=== PATIENT | female | born 1940 | race Asian ===

== ENCOUNTER → 2016-07-05 | Outpatient (CLI) | payer MEDICARE, OTHER ==
[~2016-07-05] MED LIST: AMLO1CAP; ASPI-556 PO; ATOR10TA84 PO; ATOR20TA86 PO; MECL-111 PO
[2016-07-05 14:37] LABS: ALANINE AMINOTRANSFERASE 36 U/L (12-78); ALBUMIN 3.8 g/dL (3.4-5.0); ANION GAP 9 mmol/L (8-16); ASPARTATE AMINOTRANSFERASE 25 U/L (15-37); BILIRUBIN,TOTAL 0.6 mg/dL (0.1-1.0); CARBON DIOXIDE 29 mmol/L (22-29); CHLORIDE 105 mmol/L (98-107); CHOL/HDL RATIO 2.1 (3.9-5.7); CREATININE 0.78 mg/dL (0.60-1.30); GLOMERULAR FILTR. RATE CALC > 60 mL/min (>60); POTASSIUM 4.2 mmol/L (3.5-5.1); SODIUM SERUM 143 mmol/L (136-145); TOTAL PROTEIN, SERUM 7.5 g/dL (6.4-8.2); UREA NITROGEN, BLOOD 14 mg/dL (7-18)
[2016-07-05 14:51] LABS: HEMOGLOBIN A1C 6.2 % (4.5-6.2)
== END | disposition home or self-care (01) ==
LOC: LABPV 11:51
PROVIDERS: ATTEND Internal Medicine
DX: I10 Essential (primary) hypertension (principal); E78.00 Pure hypercholesterolemia, unspecified; R73.09 Other abnormal glucose
CPT/HCPCS: 83036

== ENCOUNTER → 2017-09-14 | Outpatient (CLI) | payer MEDICARE, OTHER ==
[2017-09-14 15:22] LABS: BASOPHILS % (AUTO) 0.5 % (0.0-2.0); EOSINOPHILS % (AUTO) 0.9 % (1.0-6.0); HEMATOCRIT 36.1 % (36-46); HEMOGLOBIN 11.4 g/dL (12.0-16.0); LYMPHOCYTES # (AUTO) 1.7 K/uL (1.0-4.8); LYMPHOCYTES % (AUTO) 32.4 % (22.0-44.0); MEAN CORPUSCULAR HEMOGLOBIN 22.8 pg (26.0-34.0); MEAN CORPUSCULAR HGB CONC 31.7 G/dL (31.0-37.0); MEAN CORPUSCULAR VOLUME 72 fL (80-100); MONOCYTES # (AUTO) 0.4 K/uL (0.1-1.0); MONOCYTES % (AUTO) 7.4 % (2.0-9.0); NEUTROPHILS # (AUTO) 3.1 K/uL (1.8-7.7); NEUTROPHILS % (AUTO) 58.8 % (40.0-70.0); PLATELET COUNT (AUTO) 247 K/uL (150-450); RED BLOOD CELL COUNT(AUTO) 5.01 MIL/uL (4.00-5.20); RED CELL DISTRIBUTION WIDTH 14.3 % (11.5-14.5)
[2017-09-14 15:38] LABS: ALANINE AMINOTRANSFERASE 29 U/L (12-78); ALBUMIN 4.2 g/dL (3.4-5.0); ALKALINE PHOSPHATASE 83 U/L (46-116); ANION GAP 6 mmol/L (8-16); ASPARTATE AMINOTRANSFERASE 20 U/L (15-37); BILIRUBIN,TOTAL 0.6 mg/dL (0.1-1.0); CALCIUM, TOTAL 8.9 mg/dL (8.8-10.5); CARBON DIOXIDE 28 mmol/L (22-29); CHLORIDE 106 mmol/L (98-107); CHOL/HDL RATIO 3.7 (3.9-5.7); CHOLESTEROL 183 mg/dL (131-200); CREATININE 0.89 mg/dL (0.60-1.30); GLOMERULAR FILTR. RATE CALC > 60 mL/min (>60); GLUCOSE,RANDOM 93 mg/dL (70-110); HDL CHOLESTEROL 49 mg/dL (40-60); LDL CHOL (CALC.) 111 mg/dL (0-130); SODIUM SERUM 140 mmol/L (136-145); TOTAL PROTEIN, SERUM 7.7 g/dL (6.4-8.2); TRIGLYCERIDES 117 mg/dL (15-150); UREA NITROGEN, BLOOD 22 mg/dL (7-18)
== END | disposition home or self-care (01) ==
LOC: MSR 10:41
PROVIDERS: ATTEND Internal Medicine Infectious Disease
DX: M43.16 Spondylolisthesis, lumbar region (principal); M51.36 Other intervertebral disc degeneration, lumbar region; M16.11 Unilateral primary osteoarthritis, right hip; E78.00 Pure hypercholesterolemia, unspecified; Z79.899 Other long term (current) drug therapy
CPT/HCPCS: 72100; 73502; 84550; 86430

== ENCOUNTER 2017-10-01 04:41 | Inpatient (IN) | payer MEDICARE, OTHER ==
[~2017-10-01] VITALS: Ht 152.4 cm; Wt 63.0 kg
[2017-10-01] MEDS ORDERED: NAPR-58 PO (04:53)
[2017-10-01] MEDS ORDERED: ACET-2247 PO (04:53)
[2017-10-01] MEDS ORDERED: CALC-1038 PO (04:53)
[2017-10-01] MEDS ORDERED: ERGO400T7 PO (04:53)
[2017-10-01] MEDS ORDERED: BENA20 PO (04:53)
[2017-10-01] MEDS ORDERED: ERGO500014 PO (04:53)
[2017-10-01] MEDS ORDERED: ACETAMINOPHEN/CODEINE 300-30 MG TABLET PO ONE (05:45)
[2017-10-01] MEDS ORDERED: KETOROLAC TROMETHAMINE 60 MG/2 ML VIAL IM ONE (05:45)
[2017-10-01 06:21] LABS: BASOPHILS % (AUTO) 0.3 % (0.0-2.0); EOSINOPHILS % (AUTO) 1.6 % (1.0-6.0); HEMATOCRIT 34.1 % (36-46); HEMOGLOBIN 10.8 g/dL (12.0-16.0); LYMPHOCYTES # (AUTO) 1.2 K/uL (1.0-4.8); LYMPHOCYTES % (AUTO) 19.2 % (22.0-44.0); MEAN CORPUSCULAR HEMOGLOBIN 22.7 pg (26.0-34.0); MEAN CORPUSCULAR HGB CONC 31.7 G/dL (31.0-37.0); MEAN CORPUSCULAR VOLUME 72 fL (80-100); MONOCYTES # (AUTO) 0.4 K/uL (0.1-1.0); MONOCYTES % (AUTO) 6.6 % (2.0-9.0); NEUTROPHILS # (AUTO) 4.5 K/uL (1.8-7.7); NEUTROPHILS % (AUTO) 72.3 % (40.0-70.0); PLATELET COUNT (AUTO) 230 K/uL (150-450); RED BLOOD CELL COUNT(AUTO) 4.77 MIL/uL (4.00-5.20); RED CELL DISTRIBUTION WIDTH 14.2 % (11.5-14.5)
[2017-10-01 06:23] LABS: CALCIUM, TOTAL 8.9 mg/dL (8.8-10.5); CREATININE 1.09 mg/dL (0.60-1.30); POTASSIUM 4.3 mmol/L (3.5-5.1)
[2017-10-01 06:31] LABS: BILIRUBIN,TOTAL 0.5 mg/dL (0.1-1.0); TOTAL PROTEIN, SERUM 7.4 g/dL (6.4-8.2)
[2017-10-01 12:00] VITALS: BP 156/70
[2017-10-01] MEDS ORDERED: MORPHINE SULFATE 4 MG/ML SYRINGE IVP ONE (14:45)
[2017-10-01 15:28] VITALS: BP 131/69
[2017-10-01] MEDS ORDERED: MORPHINE SULFATE 4 MG/ML SYRINGE IVP PRN (16:15)
[2017-10-01] MEDS ORDERED: MAGNESIUM HYDROXIDE SUSPENSION 30 ML UDCUP PO PRN (16:15)
[2017-10-01] MEDS ORDERED: ONDANSETRON HCL 4 MG/2 ML VIAL IVP PRN (16:15)
[2017-10-01] MEDS ORDERED: BISACODYL 10 MG RECTAL RECTAL SUPPOSITORY PR PRN (16:15)
[2017-10-01] MEDS ORDERED: IPRATROPIUM BROMIDE 0.5 MG/2.5 ML NEB SOLUTION NEB PRN (16:15)
[2017-10-01] MEDS ORDERED: ZOLPIDEM TARTRATE 5 MG TABLET PO PRN (16:15)
[2017-10-01] MEDS ORDERED: MECLIZINE HCL 25 MG TABLET PO PRN (16:15)
[2017-10-01] MEDS ORDERED: ALBUTEROL SULFATE 2.5 MG/0.5 ML NEB SOLUTION NEB PRN (16:15)
[2017-10-01 20:17] VITALS: BP 143/69
[2017-10-01] MEDS: DOCUSATE SODIUM 100 MG CAPSULE PO SCH (20:43)
[2017-10-01] MEDS: NAPROXEN 500 MG TABLET PO SCH (20:43)
[2017-10-01 23:32] VITALS: BP 145/65
[2017-10-02] MEDS: HEPARIN SODIUM,PORCINE 5,000 UNITS/ML VIAL SQ SCH ×4 (00:12→23:39)
[2017-10-02 04:04] VITALS: BP 142/72
[2017-10-02 08:00] VITALS: BP 133/60
[2017-10-02] MEDS ORDERED: MORPHINE SULFATE 4 MG/ML SYRINGE IVP PRN (11:30)
[2017-10-02] MEDS: CALCIUM OYSTER SHELL 500 MG TABLET PO SCH (11:44)
[2017-10-02] MEDS: DOCUSATE SODIUM 100 MG CAPSULE PO SCH ×2 (11:44→20:16)
[2017-10-02] MEDS: ASPIRIN 81 MG EC TABLET PO SCH (11:45)
[2017-10-02] MEDS: CHOLECALCIFEROL (VIT D3) 400 UNITS TABLET PO SCH (11:45)
[2017-10-02] MEDS: NAPROXEN 500 MG TABLET PO SCH ×2 (11:45→20:17)
[2017-10-02] MEDS: PANTOPRAZOLE SODIUM 40 MG/VIAL IVP SCH (11:45)
[2017-10-02] MEDS: BENAZEPRIL HCL 20 MG TABLET PO SCH (11:46)
[2017-10-02 12:00] VITALS: BP 147/76
[2017-10-02 17:19] VITALS: BP 153/83
[2017-10-02 19:45] VITALS: BP 141/78
[2017-10-02 23:45] VITALS: BP 140/63
[2017-10-03 04:45] VITALS: BP 137/57
[2017-10-03 08:10] VITALS: BP 151/71
[2017-10-03] MEDS: BENAZEPRIL HCL 20 MG TABLET PO SCH (08:38)
[2017-10-03] MEDS: DOCUSATE SODIUM 100 MG CAPSULE PO SCH ×2 (08:38→20:32)
[2017-10-03] MEDS: ASPIRIN 81 MG EC TABLET PO SCH (08:39)
[2017-10-03] MEDS: NAPROXEN 500 MG TABLET PO SCH ×2 (08:39→20:33)
[2017-10-03] MEDS: HEPARIN SODIUM,PORCINE 5,000 UNITS/ML VIAL SQ SCH ×2 (08:39→16:04)
[2017-10-03] MEDS: PANTOPRAZOLE SODIUM 40 MG/VIAL IVP SCH (08:39)
[2017-10-03] MEDS: CALCIUM OYSTER SHELL 500 MG TABLET PO SCH (08:39)
[2017-10-03] MEDS: CHOLECALCIFEROL (VIT D3) 400 UNITS TABLET PO SCH (08:40)
[2017-10-03 08:54] LABS: BASOPHILS % (AUTO) 0.3 % (0.0-2.0); EOSINOPHILS % (AUTO) 2.6 % (1.0-6.0); HEMATOCRIT 35.9 % (36-46); HEMOGLOBIN 11.6 g/dL (12.0-16.0); LYMPHOCYTES % (AUTO) 29.2 % (22.0-44.0); MEAN CORPUSCULAR HEMOGLOBIN 23.1 pg (26.0-34.0); MEAN CORPUSCULAR HGB CONC 32.4 G/dL (31.0-37.0); MEAN CORPUSCULAR VOLUME 71 fL (80-100); MONOCYTES # (AUTO) 0.4 K/uL (0.1-1.0); MONOCYTES % (AUTO) 6.1 % (2.0-9.0); NEUTROPHILS # (AUTO) 4.1 K/uL (1.8-7.7); NEUTROPHILS % (AUTO) 61.8 % (40.0-70.0); PLATELET COUNT (AUTO) 225 K/uL (150-450); RED BLOOD CELL COUNT(AUTO) 5.03 MIL/uL (4.00-5.20)
[2017-10-03 09:00] LABS: ANION GAP 6 mmol/L (8-16); C-REACTIVE PROTEIN QUANT 1.85 mg/dL (0.00-0.30); CARBON DIOXIDE 29 mmol/L (22-29); CHLORIDE 105 mmol/L (98-107); CREATININE 0.97 mg/dL (0.60-1.30); GLOMERULAR FILTR. RATE CALC 56 mL/min (>60); GLUCOSE,RANDOM 156 mg/dL (70-110); POTASSIUM 4.2 mmol/L (3.5-5.1); SODIUM SERUM 140 mmol/L (136-145); UREA NITROGEN, BLOOD 16 mg/dL (7-18)
[2017-10-03] MEDS ORDERED: ASCORBIC ACID 500 MG TABLET PO SCH (09:00)
[2017-10-03] MEDS ORDERED: VANCOMYCIN HCL 1.5 GM in DEXTROSE 5%-WATER 250 ML IV ONE (10:00)
[2017-10-03] MEDS ORDERED: SODIUM CHLORIDE 0.9% 500 ML IV ONE (10:06)
[2017-10-03 10:07] LABS: ERYTHROCYTE SEDIMENTATION RATE 21 MM/HR (0-20)
[2017-10-03] MEDS: PIPERACILLIN SODIUM/TAZOBACTAM 2.25 GM in DEXTROSE 5%-WATER 50 ML IV SCH ×3 (10:11→20:27)
[2017-10-03 12:48] VITALS: BP 148/63
[2017-10-03 14:15] LABS: URIC ACID 5.7 mg/dL (2.6-7.2)
[2017-10-03 16:05] VITALS: BP 149/68
[2017-10-03 20:02] VITALS: BP 129/61
[2017-10-03] MEDS: HYDROCODONE/ACETAMINOPHEN 5-325 MG TABLET PO PRN (20:33)
[2017-10-04] VITALS (7 sets, daily range): BP systolic 92–124; BP diastolic 42–54
[2017-10-04] MEDS: HEPARIN SODIUM,PORCINE 5,000 UNITS/ML VIAL SQ SCH ×4 (00:08→23:16)
[2017-10-04] MEDS: PIPERACILLIN SODIUM/TAZOBACTAM 2.25 GM in DEXTROSE 5%-WATER 50 ML IV SCH ×4 (02:08→20:05)
[2017-10-04] MEDS: ACETAMINOPHEN 325 MG TABLET PO PRN (06:48)
[2017-10-04 07:17] LABS: CALCIUM, TOTAL 8.5 mg/dL (8.8-10.5); CREATININE 1.47 mg/dL (0.60-1.30); POTASSIUM 4.1 mmol/L (3.5-5.1)
[2017-10-04] MEDS ORDERED: VANCOMYCIN HCL 1.25 GM in DEXTROSE 5%-WATER 250 ML IV SCH (08:00)
[2017-10-04] MEDS: CALCIUM OYSTER SHELL 500 MG TABLET PO SCH (08:39)
[2017-10-04] MEDS: DOCUSATE SODIUM 100 MG CAPSULE PO SCH ×2 (08:40→20:05)
[2017-10-04] MEDS: CHOLECALCIFEROL (VIT D3) 400 UNITS TABLET PO SCH (08:40)
[2017-10-04] MEDS: ASPIRIN 81 MG EC TABLET PO SCH (08:40)
[2017-10-04] MEDS: NAPROXEN 500 MG TABLET PO SCH ×2 (08:41→20:05)
[2017-10-04] MEDS: BENAZEPRIL HCL 20 MG TABLET PO SCH (08:41)
[2017-10-04] MEDS: PANTOPRAZOLE SODIUM 40 MG/VIAL IVP SCH (08:41)
[2017-10-04] MEDS: VANCOMYCIN HCL 1 GM/D5% WATER 200 ML IV SCH (08:55)
[2017-10-04] MEDS: HYDROCODONE/ACETAMINOPHEN 5-325 MG TABLET PO PRN (10:53)
[2017-10-04] MEDS ORDERED: SODIUM CHLORIDE 0.9% 1,000 ML IV ONE (11:15)
[2017-10-04] MEDS ORDERED: SODIUM CHLORIDE 0.9% 500 ML IV ONE (23:54)
[2017-10-05] MEDS: PIPERACILLIN SODIUM/TAZOBACTAM 2.25 GM in DEXTROSE 5%-WATER 50 ML IV SCH ×5 (03:12→21:39)
[2017-10-05 04:49] VITALS: BP 106/59
[2017-10-05 04:53] VITALS: BP 131/56
[2017-10-05 06:43] LABS: CREATININE 1.48 mg/dL (0.60-1.30); POTASSIUM 3.8 mmol/L (3.5-5.1)
[2017-10-05 06:44] LABS: INR 1.1 (0.9-1.1); PROTHROMBIN TIME 11.3 SEC (9.4-11.6)
[2017-10-05 07:35] VITALS: BP 125/56
[2017-10-05] MEDS: PANTOPRAZOLE SODIUM 40 MG/VIAL IVP SCH (08:33)
[2017-10-05] MEDS: NAPROXEN 500 MG TABLET PO SCH (08:37)
[2017-10-05] MEDS: CHOLECALCIFEROL (VIT D3) 400 UNITS TABLET PO SCH (08:37)
[2017-10-05] MEDS: BENAZEPRIL HCL 20 MG TABLET PO SCH (08:37)
[2017-10-05] MEDS: CALCIUM OYSTER SHELL 500 MG TABLET PO SCH (08:37)
[2017-10-05] MEDS: DOCUSATE SODIUM 100 MG CAPSULE PO SCH ×2 (08:37→20:33)
[2017-10-05] MEDS: ASPIRIN 81 MG EC TABLET PO SCH (08:38)
[2017-10-05] MEDS: HYDROCODONE/ACETAMINOPHEN 5-325 MG TABLET PO PRN ×2 (08:39→20:48)
[2017-10-05] MEDS: HEPARIN SODIUM,PORCINE 5,000 UNITS/ML VIAL SQ SCH ×2 (08:47→17:55)
[2017-10-05] MEDS ORDERED: FentaNYL CITRATE-PF 100 MCG/2 ML VIAL ONE (09:44)
[2017-10-05] MEDS ORDERED: FLUMAZENIL 0.1 MG/ML 5 ML VIAL IVP ONE (09:44)
[2017-10-05] MEDS ORDERED: NALOXONE HCL 0.4 MG/ML VIAL ONE (09:44)
[2017-10-05] MEDS ORDERED: MIDAZOLAM HCL 2 MG/2 ML VIAL ONE (09:44)
[2017-10-05] MEDS: ACETAMINOPHEN 325 MG TABLET PO PRN (11:54)
[2017-10-05] MEDS: VANCOMYCIN HCL 1 GM/D5% WATER 200 ML IV SCH (12:24)
[2017-10-05 18:26] LABS: SPECIMENTYPE,BODY FLUID ASP
[2017-10-05 19:00] VITALS: BP 115/46
[2017-10-05 21:19] LABS: APPEARANCE,SPUN,BODY FLUID CLEAR (CLEAR); APPEARANCE,UNSPUN,BODY FLUID CLOUDY (CLEAR); BODY FLUID RBC 2716.7 /cu. mm.; LYMPHOCYTES,BODY FLUID 64 %; MONOCYTES,BODY FLUID 4 %; NEUTROPHILS,BODY FLUID 32 %; WBC, BODY FLUID 8.33 /cu. mm.
[2017-10-05 21:21] LABS: COLOR,BODY FLUID RED (LT YELLOW)
[2017-10-05 23:00] VITALS: BP 122/51
[2017-10-06] MEDS: NAPROXEN 500 MG TABLET PO SCH ×3 (00:41→17:44)
[2017-10-06] MEDS: HEPARIN SODIUM,PORCINE 5,000 UNITS/ML VIAL SQ SCH ×4 (00:41→23:25)
[2017-10-06] MEDS: PIPERACILLIN SODIUM/TAZOBACTAM 2.25 GM in DEXTROSE 5%-WATER 50 ML IV SCH ×4 (02:51→20:56)
[2017-10-06 04:00] VITALS: BP 149/58
[2017-10-06 06:26] LABS: BASOPHILS % (AUTO) 0.7 % (0.0-2.0); EOSINOPHILS % (AUTO) 4.6 % (1.0-6.0); HEMATOCRIT 29.8 % (36-46); HEMOGLOBIN 9.7 g/dL (12.0-16.0); LYMPHOCYTES % (AUTO) 28.6 % (22.0-44.0); MEAN CORPUSCULAR HEMOGLOBIN 23.3 pg (26.0-34.0); MEAN CORPUSCULAR HGB CONC 32.5 G/dL (31.0-37.0); MEAN CORPUSCULAR VOLUME 72 fL (80-100); MONOCYTES # (AUTO) 0.5 K/uL (0.1-1.0); MONOCYTES % (AUTO) 7.5 % (2.0-9.0); NEUTROPHILS % (AUTO) 58.6 % (40.0-70.0); PLATELET COUNT (AUTO) 191 K/uL (150-450); RED BLOOD CELL COUNT(AUTO) 4.16 MIL/uL (4.00-5.20); RED CELL DISTRIBUTION WIDTH 14.3 % (11.5-14.5)
[2017-10-06 07:50] VITALS: BP 134/54
[2017-10-06] MEDS: VANCOMYCIN HCL 1 GM/D5% WATER 200 ML IV SCH (08:24)
[2017-10-06] MEDS: ASPIRIN 81 MG EC TABLET PO SCH (08:25)
[2017-10-06] MEDS: PANTOPRAZOLE SODIUM 40 MG DR TABLET PO SCH (08:25)
[2017-10-06] MEDS: CHOLECALCIFEROL (VIT D3) 400 UNITS TABLET PO SCH (08:25)
[2017-10-06] MEDS: BENAZEPRIL HCL 20 MG TABLET PO SCH (08:26)
[2017-10-06] MEDS: DOCUSATE SODIUM 100 MG CAPSULE PO SCH ×2 (08:26→19:56)
[2017-10-06] MEDS: CALCIUM OYSTER SHELL 500 MG TABLET PO SCH (08:26)
[2017-10-06 10:05] LABS: CALCIUM, TOTAL 8.1 mg/dL (8.8-10.5); CREATININE 1.21 mg/dL (0.60-1.30); POTASSIUM 3.7 mmol/L (3.5-5.1)
[2017-10-06 11:40] VITALS: BP 157/67
[2017-10-06 15:54] VITALS: BP 140/57
[2017-10-06 19:45] VITALS: BP 147/66
[2017-10-06 23:32] VITALS: BP 151/61
[2017-10-07] MEDS: PIPERACILLIN SODIUM/TAZOBACTAM 2.25 GM in DEXTROSE 5%-WATER 50 ML IV SCH ×4 (02:07→22:09)
[2017-10-07 04:25] VITALS: BP 149/70
[2017-10-07 07:07] LABS: BASOPHILS % (AUTO) 0.3 % (0.0-2.0); EOSINOPHILS % (AUTO) 4.1 % (1.0-6.0); HEMATOCRIT 31.3 % (36-46); HEMOGLOBIN 10.2 g/dL (12.0-16.0); LYMPHOCYTES # (AUTO) 1.7 K/uL (1.0-4.8); LYMPHOCYTES % (AUTO) 27.6 % (22.0-44.0); MEAN CORPUSCULAR HEMOGLOBIN 23.2 pg (26.0-34.0); MEAN CORPUSCULAR HGB CONC 32.6 G/dL (31.0-37.0); MEAN CORPUSCULAR VOLUME 71 fL (80-100); MONOCYTES # (AUTO) 0.5 K/uL (0.1-1.0); MONOCYTES % (AUTO) 7.9 % (2.0-9.0); NEUTROPHILS # (AUTO) 3.7 K/uL (1.8-7.7); NEUTROPHILS % (AUTO) 60.1 % (40.0-70.0); PLATELET COUNT (AUTO) 207 K/uL (150-450); RED BLOOD CELL COUNT(AUTO) 4.41 MIL/uL (4.00-5.20); RED CELL DISTRIBUTION WIDTH 14.1 % (11.5-14.5)
[2017-10-07 07:15] LABS: CALCIUM, TOTAL 8.2 mg/dL (8.8-10.5); CREATININE 0.95 mg/dL (0.60-1.30); POTASSIUM 3.6 mmol/L (3.5-5.1)
[2017-10-07 07:56] VITALS: BP 156/56
[2017-10-07] MEDS: BENAZEPRIL HCL 20 MG TABLET PO SCH (08:02)
[2017-10-07] MEDS: VANCOMYCIN HCL 1 GM/D5% WATER 200 ML IV SCH (08:02)
[2017-10-07] MEDS: CHOLECALCIFEROL (VIT D3) 400 UNITS TABLET PO SCH (08:03)
[2017-10-07] MEDS: NAPROXEN 500 MG TABLET PO SCH ×2 (08:03→18:24)
[2017-10-07] MEDS: PANTOPRAZOLE SODIUM 40 MG DR TABLET PO SCH (08:03)
[2017-10-07] MEDS: HEPARIN SODIUM,PORCINE 5,000 UNITS/ML VIAL SQ SCH ×3 (08:03→23:08)
[2017-10-07] MEDS: CALCIUM OYSTER SHELL 500 MG TABLET PO SCH (08:04)
[2017-10-07] MEDS: DOCUSATE SODIUM 100 MG CAPSULE PO SCH ×2 (08:04→20:49)
[2017-10-07] MEDS: ASPIRIN 81 MG EC TABLET PO SCH (08:04)
[2017-10-07] MEDS ORDERED: ERGOCALCIFEROL (VIT D2) 50,000 UNITS CAPSULE PO SCH (09:00)
[2017-10-07 11:20] VITALS: BP 140/61
[2017-10-07 15:27] VITALS: BP 139/54
[2017-10-07 19:55] VITALS: BP 176/69
[2017-10-07 22:54] VITALS: BP 153/66
[2017-10-08] MEDS: HYDROCODONE/ACETAMINOPHEN 5-325 MG TABLET PO PRN (01:01)
[2017-10-08 04:15] VITALS: BP 146/69
[2017-10-08] MEDS: PIPERACILLIN SODIUM/TAZOBACTAM 2.25 GM in DEXTROSE 5%-WATER 50 ML IV SCH ×2 (04:18→07:51)
[2017-10-08 06:33] LABS: CREATININE 0.91 mg/dL (0.60-1.30); POTASSIUM 3.5 mmol/L (3.5-5.1)
[2017-10-08] MEDS: VANCOMYCIN HCL 1 GM/D5% WATER 200 ML IV SCH (07:52)
[2017-10-08] MEDS: CHOLECALCIFEROL (VIT D3) 400 UNITS TABLET PO SCH (08:00)
[2017-10-08] MEDS: BENAZEPRIL HCL 20 MG TABLET PO SCH (08:01)
[2017-10-08] MEDS: DOCUSATE SODIUM 100 MG CAPSULE PO SCH (08:01)
[2017-10-08] MEDS: NAPROXEN 500 MG TABLET PO SCH (08:01)
[2017-10-08] MEDS: ASPIRIN 81 MG EC TABLET PO SCH (08:01)
[2017-10-08] MEDS: PANTOPRAZOLE SODIUM 40 MG DR TABLET PO SCH (08:02)
[2017-10-08] MEDS: HEPARIN SODIUM,PORCINE 5,000 UNITS/ML VIAL SQ SCH (08:09)
[2017-10-08 08:26] VITALS: BP 141/57
[2017-10-08] MEDS: CALCIUM OYSTER SHELL 500 MG TABLET PO SCH (10:29)
[2017-10-08 11:24] VITALS: BP 144/62
== END 2017-10-08 13:15 | DRG 557 ==
LOC: EMS 04:42 → 6N 11:33 → 4E 10-08 04:50
PROVIDERS: ADMIT Hospitalist; ATTEND Hospitalist
PROC: 0S993ZX Drainage of Right Hip Joint, Percutaneous Approach, Diagnostic (ICD-10-PCS; principal; 2017-10-05)
DX: M72.9 Fibroblastic disorder, unspecified (principal); K68.12 Psoas muscle abscess; N17.9 Acute kidney failure, unspecified; D50.9 Iron deficiency anemia, unspecified; M60.9 Myositis, unspecified; M54.9 Dorsalgia, unspecified; E78.00 Pure hypercholesterolemia, unspecified; I10 Essential (primary) hypertension; M25.551 Pain in right hip; M43.16 Spondylolisthesis, lumbar region; M41.9 Scoliosis, unspecified; E78.5 Hyperlipidemia, unspecified; Z79.82 Long term (current) use of aspirin; Z79.899 Other long term (current) drug therapy
CPT/HCPCS: 72148; 72195; 73521; 75989; 84145; 84550; 85651; 86140; 87040; 87070; 87205; 89051; 96372; 97110; 97116; 97162; 97166; 97530; 97535; 99285; C9113; J1644; J1885; J2250; J2270; J2310; J2405; J2543; J3010; J3370; J3490; J7030; J7040; J7060

== ENCOUNTER 2017-10-08 13:24 | Inpatient (IN) | payer MEDICARE, OTHER ==
[~2017-10-08] VITALS: Ht 152.4 cm; Wt 61.7 kg
[~2017-10-08 13:24] MED LIST changes: +ACET-2247 PO; -AMLO1CAP; -ATOR10TA84 PO; -ATOR20TA86 PO; +BENA20 PO; +CALC-1038 PO; +ERGO400T7 PO; +ERGO500014 PO; +NAPR-58 PO
[2017-10-08 15:03] VITALS: BP 137/56
[2017-10-08] MEDS ORDERED: ALBUTEROL SULFATE 2.5 MG/0.5 ML NEB SOLUTION NEB PRN (15:15)
[2017-10-08] MEDS ORDERED: DOCUSATE SODIUM 283 MG/5 ML MINI-ENEMA PR PRN (15:15)
[2017-10-08 15:30] VITALS: BP 137/56
[2017-10-08] MEDS ORDERED: ACETAMINOPHEN 325 MG TABLET PO PRN (16:00)
[2017-10-08] MEDS ORDERED: HYDROCODONE/ACETAMINOPHEN 5-325 MG TABLET PO PRN ×2 (16:00→16:15)
[2017-10-08] MEDS ORDERED: ONDANSETRON HCL 4 MG TABLET PO PRN (16:15)
[2017-10-08] MEDS ORDERED: MECLIZINE HCL 25 MG TABLET PO PRN (16:15)
[2017-10-08] MEDS ORDERED: MAGNESIUM HYDROXIDE SUSPENSION 30 ML UDCUP PO PRN (16:15)
[2017-10-08] MEDS ORDERED: IPRATROPIUM BROMIDE 0.5 MG/2.5 ML NEB SOLUTION NEB PRN (16:15)
[2017-10-08] MEDS ORDERED: SODIUM CHLORIDE 0.9% 250 ML IV ONE (16:49)
[2017-10-08] MEDS: PIPERACILLIN SODIUM/TAZOBACTAM 2.25 GM in DEXTROSE 5%-WATER 50 ML IV SCH ×2 (16:52→22:22)
[2017-10-08] MEDS: HEPARIN SODIUM,PORCINE 5,000 UNITS/ML VIAL SQ SCH ×2 (16:52→23:33)
[2017-10-08] MEDS: ACETAMINOPHEN 325 MG TABLET PO PRN (17:20)
[2017-10-08] MEDS: SENNA 187 MG TABLET PO SCH ×2 (20:23→20:26)
[2017-10-08] MEDS: DOCUSATE SODIUM 100 MG CAPSULE PO SCH ×2 (20:23→20:26)
[2017-10-08] MEDS ORDERED: NAPROXEN 500 MG TABLET PO SCH (21:00)
[2017-10-09 00:46] VITALS: BP 141/50
[2017-10-09 00:47] VITALS: BP 141/50
[2017-10-09] MEDS: PIPERACILLIN SODIUM/TAZOBACTAM 2.25 GM in DEXTROSE 5%-WATER 50 ML IV SCH ×4 (04:02→22:11)
[2017-10-09] MEDS ORDERED: VANCOMYCIN HCL 1 GM/D5% WATER 200 ML IV SCH (05:00)
[2017-10-09] MEDS: VANCOMYCIN HCL 1 GM/D5% WATER 200 ML IV SCH (05:55)
[2017-10-09 06:15] LABS: BASOPHILS % (AUTO) 0.3 % (0.0-2.0); HEMATOCRIT 29.9 % (36-46); HEMOGLOBIN 9.8 g/dL (12.0-16.0); LYMPHOCYTES # (AUTO) 2.4 K/uL (1.0-4.8); LYMPHOCYTES % (AUTO) 33.2 % (22.0-44.0); MEAN CORPUSCULAR HEMOGLOBIN 23.2 pg (26.0-34.0); MEAN CORPUSCULAR HGB CONC 32.8 G/dL (31.0-37.0); MEAN CORPUSCULAR VOLUME 71 fL (80-100); MONOCYTES # (AUTO) 0.7 K/uL (0.1-1.0); MONOCYTES % (AUTO) 9.1 % (2.0-9.0); NEUTROPHILS # (AUTO) 3.8 K/uL (1.8-7.7); NEUTROPHILS % (AUTO) 53.4 % (40.0-70.0); PLATELET COUNT (AUTO) 240 K/uL (150-450); RED BLOOD CELL COUNT(AUTO) 4.23 MIL/uL (4.00-5.20); RED CELL DISTRIBUTION WIDTH 13.8 % (11.5-14.5)
[2017-10-09 06:29] LABS: BILIRUBIN,TOTAL 0.6 mg/dL (0.1-1.0); CALCIUM, TOTAL 8.4 mg/dL (8.8-10.5); CREATININE 1.17 mg/dL (0.60-1.30); POTASSIUM 3.6 mmol/L (3.5-5.1); TOTAL PROTEIN, SERUM 6.4 g/dL (6.4-8.2); VANCOMYCIN,RANDOM 11.7 mcg/mL (25.0-50.0)
[2017-10-09 09:00] VITALS: BP 156/59
[2017-10-09] MEDS: DOCUSATE SODIUM 100 MG CAPSULE PO SCH ×3 (09:00→20:13)
[2017-10-09] MEDS: NAPROXEN 500 MG TABLET PO SCH ×3 (09:31→20:12)
[2017-10-09] MEDS: BENAZEPRIL HCL 20 MG TABLET PO SCH (09:32)
[2017-10-09] MEDS: PANTOPRAZOLE SODIUM 40 MG DR TABLET PO SCH (09:32)
[2017-10-09] MEDS: CALCIUM OYSTER SHELL 500 MG TABLET PO SCH (09:32)
[2017-10-09] MEDS: LACTOBAC ACID/BULG/BIFID/THERM TABLET PO SCH ×2 (09:32→20:11)
[2017-10-09] MEDS: CHOLECALCIFEROL (VIT D3) 400 UNITS TABLET PO SCH (09:32)
[2017-10-09] MEDS: HEPARIN SODIUM,PORCINE 5,000 UNITS/ML VIAL SQ SCH ×3 (09:33→23:56)
[2017-10-09] MEDS: ASPIRIN 81 MG CHEWABLE TABLET PO SCH (09:33)
[2017-10-09 10:26] LABS: BILIRUBIN,URINE NEGATIVE (NEGATIVE); GLUCOSE, URINE (UA) NEGATIVE (NEGATIVE); KETONES,URINE NEGATIVE (NEGATIVE); LEUKOCYTE ESTERASE ,URINE MODERATE (NEGATIVE); NITRATE,URINE NEGATIVE (NEGATIVE); OCCULT BLOOD,URINE TRACE (NEGATIVE); PH,URINE 5.5 (5.0-8.0); PROTEIN,URINE NEGATIVE (NEGATIVE); UROBILINOGEN,URINE 0.2 mg/dL (<=1.0)
[2017-10-09 10:44] LABS: APPEARANCE,URINE SLIGHTLY CLOUDY (CLEAR)
[2017-10-09 10:45] LABS: BACTERIA,URINE Few /HPF (None Seen); RBC,URINE 0-2 /HPF (0-2)
[2017-10-09 10:46] LABS: SQUAMOUS EPITHELIAL CELL,UR Few /LPF (None Seen)
[2017-10-09 15:30] VITALS: BP 115/61
[2017-10-09] MEDS: FERROUS SULFATE 325 MG EC TABLET PO SCH (15:58)
[2017-10-09] MEDS: SENNA 187 MG TABLET PO SCH (20:13)
[2017-10-10 01:21] VITALS: BP 146/66
[2017-10-10] MEDS: PIPERACILLIN SODIUM/TAZOBACTAM 2.25 GM in DEXTROSE 5%-WATER 50 ML IV SCH ×4 (03:45→22:20)
[2017-10-10] MEDS: ACETAMINOPHEN 325 MG TABLET PO PRN (05:23)
[2017-10-10] MEDS: VANCOMYCIN HCL 1 GM/D5% WATER 200 ML IV SCH (05:24)
[2017-10-10 06:58] LABS: ALBUMIN 2.9 g/dL (3.4-5.0); BILIRUBIN,TOTAL 0.6 mg/dL (0.1-1.0); CALCIUM, TOTAL 8.3 mg/dL (8.8-10.5); CREATININE 1.1 mg/dL (0.60-1.30); POTASSIUM 3.3 mmol/L (3.5-5.1); TOTAL PROTEIN, SERUM 6.3 g/dL (6.4-8.2)
[2017-10-10 08:00] VITALS: BP 146/57
[2017-10-10] MEDS: DOCUSATE SODIUM 100 MG CAPSULE PO SCH ×2 (08:12→20:00)
[2017-10-10] MEDS: CALCIUM OYSTER SHELL 500 MG TABLET PO SCH ×3 (08:12→16:00)
[2017-10-10] MEDS: NAPROXEN 500 MG TABLET PO SCH ×2 (08:12→20:00)
[2017-10-10] MEDS: CHOLECALCIFEROL (VIT D3) 400 UNITS TABLET PO SCH (08:12)
[2017-10-10] MEDS: PANTOPRAZOLE SODIUM 40 MG DR TABLET PO SCH (08:12)
[2017-10-10] MEDS: LACTOBAC ACID/BULG/BIFID/THERM TABLET PO SCH ×2 (08:12→20:00)
[2017-10-10] MEDS: FERROUS SULFATE 325 MG EC TABLET PO SCH ×2 (08:13→17:56)
[2017-10-10] MEDS: ASPIRIN 81 MG CHEWABLE TABLET PO SCH (08:13)
[2017-10-10] MEDS: BENAZEPRIL HCL 20 MG TABLET PO SCH (08:13)
[2017-10-10] MEDS: HEPARIN SODIUM,PORCINE 5,000 UNITS/ML VIAL SQ SCH ×3 (08:16→23:15)
[2017-10-10] MEDS ORDERED: SODIUM CHLORIDE 0.9% 250 ML IV ONE (11:17)
[2017-10-10 16:00] VITALS: BP 160/73
[2017-10-10] MEDS: 0.9% SODIUM CHLORIDE 10 ML SYRINGE IVP SCH ×2 (16:32→23:05)
[2017-10-10] MEDS: SENNA 187 MG TABLET PO SCH (20:00)
[2017-10-10 23:00] VITALS: BP 136/53
[2017-10-11] MEDS: PIPERACILLIN SODIUM/TAZOBACTAM 2.25 GM in DEXTROSE 5%-WATER 50 ML IV SCH ×4 (04:01→21:43)
[2017-10-11] MEDS: VANCOMYCIN HCL 1 GM/D5% WATER 200 ML IV SCH (05:39)
[2017-10-11 06:51] LABS: CREATININE 1.01 mg/dL (0.60-1.30); POTASSIUM 3.5 mmol/L (3.5-5.1)
[2017-10-11 09:10] VITALS: BP 154/60
[2017-10-11] MEDS: FERROUS SULFATE 325 MG EC TABLET PO SCH ×2 (10:17→16:45)
[2017-10-11] MEDS: BENAZEPRIL HCL 20 MG TABLET PO SCH (10:17)
[2017-10-11] MEDS: HEPARIN SODIUM,PORCINE 5,000 UNITS/ML VIAL SQ SCH ×3 (10:17→23:45)
[2017-10-11] MEDS: ASPIRIN 81 MG CHEWABLE TABLET PO SCH (10:17)
[2017-10-11] MEDS: NAPROXEN 500 MG TABLET PO SCH ×2 (10:17→20:00)
[2017-10-11] MEDS: CHOLECALCIFEROL (VIT D3) 400 UNITS TABLET PO SCH (10:17)
[2017-10-11] MEDS: PANTOPRAZOLE SODIUM 40 MG DR TABLET PO SCH (10:18)
[2017-10-11] MEDS: 0.9% SODIUM CHLORIDE 10 ML SYRINGE IVP SCH ×3 (10:18→23:52)
[2017-10-11] MEDS: LACTOBAC ACID/BULG/BIFID/THERM TABLET PO SCH ×2 (10:23→20:00)
[2017-10-11 16:00] VITALS: BP 114/60
[2017-10-11] MEDS: CALCIUM OYSTER SHELL 500 MG TABLET PO SCH (16:45)
[2017-10-11] MEDS: SENNA 187 MG TABLET PO SCH (20:01)
[2017-10-12 00:18] VITALS: BP 154/63
[2017-10-12] MEDS: PIPERACILLIN SODIUM/TAZOBACTAM 2.25 GM in DEXTROSE 5%-WATER 50 ML IV SCH ×3 (03:42→17:44)
[2017-10-12] MEDS: VANCOMYCIN HCL 1 GM/D5% WATER 200 ML IV SCH (06:20)
[2017-10-12 06:47] LABS: ANION GAP 7 mmol/L (8-16); CALCIUM, TOTAL 8.3 mg/dL (8.8-10.5); CARBON DIOXIDE 28 mmol/L (22-29); CHLORIDE 109 mmol/L (98-107); GLOMERULAR FILTR. RATE CALC > 60 mL/min (>60); GLUCOSE,RANDOM 107 mg/dL (70-110); POTASSIUM 3.6 mmol/L (3.5-5.1); SODIUM SERUM 144 mmol/L (136-145); UREA NITROGEN, BLOOD 16 mg/dL (7-18)
[2017-10-12 07:11] VITALS: BP 142/69
[2017-10-12] MEDS: LACTOBAC ACID/BULG/BIFID/THERM TABLET PO SCH ×2 (08:10→20:39)
[2017-10-12] MEDS: HEPARIN SODIUM,PORCINE 5,000 UNITS/ML VIAL SQ SCH ×3 (08:11→23:38)
[2017-10-12] MEDS: CHOLECALCIFEROL (VIT D3) 400 UNITS TABLET PO SCH (08:11)
[2017-10-12] MEDS: ASPIRIN 81 MG CHEWABLE TABLET PO SCH (08:11)
[2017-10-12] MEDS: PANTOPRAZOLE SODIUM 40 MG DR TABLET PO SCH (08:11)
[2017-10-12] MEDS: NAPROXEN 500 MG TABLET PO SCH (08:11)
[2017-10-12] MEDS: FERROUS SULFATE 325 MG EC TABLET PO SCH ×2 (08:11→17:38)
[2017-10-12] MEDS: BENAZEPRIL HCL 20 MG TABLET PO SCH (08:11)
[2017-10-12] MEDS: 0.9% SODIUM CHLORIDE 10 ML SYRINGE IVP SCH ×2 (10:42→17:39)
[2017-10-12] MEDS ORDERED: DICLOFENAC SODIUM 1% 100 GM GEL [4GM] TP SCH (10:45)
[2017-10-12] MEDS ORDERED: SODIUM CHLORIDE 0.9% 250 ML IV ONE (10:45)
[2017-10-12] MEDS ORDERED: NAPROXEN 500 MG TABLET PO PRN (10:45)
[2017-10-12] MEDS ORDERED: GADOBUTROL 1 MMOL/ML 10 ML VIAL IVP ONE (16:31)
[2017-10-12 16:32] VITALS: BP 149/78
[2017-10-12] MEDS: CALCIUM OYSTER SHELL 500 MG TABLET PO SCH (17:38)
[2017-10-12] MEDS: SENNA 187 MG TABLET PO SCH (20:38)
[2017-10-12] MEDS: DOCUSATE SODIUM 100 MG CAPSULE PO SCH (20:38)
[2017-10-12] MEDS: DICLOFENAC SODIUM 1% 100 GM GEL [4GM] TP SCH (20:39)
[2017-10-12 23:43] VITALS: BP 146/61
[2017-10-13] MEDS: PIPERACILLIN SODIUM/TAZOBACTAM 2.25 GM in DEXTROSE 5%-WATER 50 ML IV SCH ×2 (00:16→05:30)
[2017-10-13] MEDS: 0.9% SODIUM CHLORIDE 10 ML SYRINGE IVP SCH ×4 (00:57→23:13)
[2017-10-13] MEDS: VANCOMYCIN HCL 1 GM/D5% WATER 200 ML IV SCH (06:03)
[2017-10-13 06:49] LABS: ANION GAP 6 mmol/L (8-16); CALCIUM, TOTAL 8.1 mg/dL (8.8-10.5); CARBON DIOXIDE 28 mmol/L (22-29); CHLORIDE 107 mmol/L (98-107); CREATININE 0.81 mg/dL (0.60-1.30); GLOMERULAR FILTR. RATE CALC > 60 mL/min (>60); GLUCOSE,RANDOM 100 mg/dL (70-110); POTASSIUM 3.5 mmol/L (3.5-5.1); SODIUM SERUM 141 mmol/L (136-145); UREA NITROGEN, BLOOD 13 mg/dL (7-18)
[2017-10-13] MEDS: ASPIRIN 81 MG CHEWABLE TABLET PO SCH (08:27)
[2017-10-13] MEDS: FERROUS SULFATE 325 MG EC TABLET PO SCH ×2 (08:27→18:25)
[2017-10-13] MEDS: CHOLECALCIFEROL (VIT D3) 400 UNITS TABLET PO SCH (08:27)
[2017-10-13] MEDS: FAMOTIDINE 20 MG TABLET PO SCH ×2 (08:27→19:39)
[2017-10-13] MEDS: CALCIUM OYSTER SHELL 500 MG TABLET PO SCH (08:27)
[2017-10-13] MEDS: DICLOFENAC SODIUM 1% 100 GM GEL [4GM] TP SCH ×2 (08:28→19:39)
[2017-10-13] MEDS: BENAZEPRIL HCL 20 MG TABLET PO SCH (08:28)
[2017-10-13] MEDS: LACTOBAC ACID/BULG/BIFID/THERM TABLET PO SCH ×2 (08:28→19:39)
[2017-10-13] MEDS: HEPARIN SODIUM,PORCINE 5,000 UNITS/ML VIAL SQ SCH (08:29)
[2017-10-13 08:43] VITALS: BP 160/74
[2017-10-13] MEDS: PIPERACILLIN/TAZO 3.375 GM/D5W 50 ML IV SCH ×3 (11:43→21:38)
[2017-10-13 11:47] VITALS: BP 139/60
[2017-10-13 16:22] VITALS: BP 157/75
[2017-10-13] MEDS: SENNA 187 MG TABLET PO SCH (19:25)
[2017-10-13 19:35] VITALS: BP 140/62
[2017-10-13 23:46] VITALS: BP 142/56
[2017-10-14] MEDS: PIPERACILLIN/TAZO 3.375 GM/D5W 50 ML IV SCH ×4 (03:46→21:17)
[2017-10-14] MEDS: VANCOMYCIN HCL 1 GM/D5% WATER 200 ML IV SCH (07:00)
[2017-10-14 07:05] VITALS: BP 152/64
[2017-10-14 07:30] LABS: CALCIUM, TOTAL 8.4 mg/dL (8.8-10.5); CREATININE 0.94 mg/dL (0.60-1.30); POTASSIUM 3.7 mmol/L (3.5-5.1)
[2017-10-14] MEDS: CHOLECALCIFEROL (VIT D3) 400 UNITS TABLET PO SCH (08:31)
[2017-10-14] MEDS: DICLOFENAC SODIUM 1% 100 GM GEL [4GM] TP SCH ×2 (08:31→21:16)
[2017-10-14] MEDS: ASPIRIN 81 MG CHEWABLE TABLET PO SCH (08:31)
[2017-10-14] MEDS: LACTOBAC ACID/BULG/BIFID/THERM TABLET PO SCH ×2 (08:32→21:16)
[2017-10-14] MEDS: FAMOTIDINE 20 MG TABLET PO SCH ×2 (08:32→21:16)
[2017-10-14] MEDS: BENAZEPRIL HCL 20 MG TABLET PO SCH (08:32)
[2017-10-14] MEDS: FERROUS SULFATE 325 MG EC TABLET PO SCH ×2 (08:32→16:23)
[2017-10-14] MEDS: ERGOCALCIFEROL (VIT D2) 50,000 UNITS CAPSULE PO SCH (08:32)
[2017-10-14] MEDS: 0.9% SODIUM CHLORIDE 10 ML SYRINGE IVP SCH ×3 (11:36→23:47)
[2017-10-14 15:30] VITALS: BP 142/58
[2017-10-14] MEDS: CALCIUM OYSTER SHELL 500 MG TABLET PO SCH (16:23)
[2017-10-14] MEDS: VANCOMYCIN HCL 500 MG in DEXTROSE 5%-WATER 100 ML IV SCH (18:17)
[2017-10-14] MEDS: SENNA 187 MG TABLET PO SCH ×2 (21:00→21:16)
[2017-10-14] MEDS: DOCUSATE SODIUM 100 MG CAPSULE PO SCH (21:00)
[2017-10-14 23:56] VITALS: BP 141/56
[2017-10-15] MEDS: PIPERACILLIN/TAZO 3.375 GM/D5W 50 ML IV SCH ×2 (04:49→10:16)
[2017-10-15] MEDS: VANCOMYCIN HCL 500 MG in DEXTROSE 5%-WATER 100 ML IV SCH ×2 (05:47→18:28)
[2017-10-15] MEDS ORDERED: VANCOMYCIN HCL 1.25 GM in DEXTROSE 5%-WATER 250 ML IV SCH (06:00)
[2017-10-15 07:30] LABS: ALBUMIN 2.7 g/dL (3.4-5.0); BILIRUBIN,TOTAL 0.6 mg/dL (0.1-1.0); CALCIUM, TOTAL 8.3 mg/dL (8.8-10.5); POTASSIUM 3.8 mmol/L (3.5-5.1); TOTAL PROTEIN, SERUM 6.2 g/dL (6.4-8.2)
[2017-10-15 08:00] VITALS: BP 130/54
[2017-10-15] MEDS: FAMOTIDINE 20 MG TABLET PO SCH ×2 (08:26→20:36)
[2017-10-15] MEDS: ASPIRIN 81 MG CHEWABLE TABLET PO SCH (08:26)
[2017-10-15] MEDS: DICLOFENAC SODIUM 1% 100 GM GEL [4GM] TP SCH ×2 (08:26→20:37)
[2017-10-15] MEDS: CHOLECALCIFEROL (VIT D3) 400 UNITS TABLET PO SCH (08:26)
[2017-10-15] MEDS: BENAZEPRIL HCL 20 MG TABLET PO SCH (08:26)
[2017-10-15] MEDS: FERROUS SULFATE 325 MG EC TABLET PO SCH ×2 (08:26→18:09)
[2017-10-15] MEDS: LACTOBAC ACID/BULG/BIFID/THERM TABLET PO SCH ×2 (08:26→20:36)
[2017-10-15] MEDS: 0.9% SODIUM CHLORIDE 10 ML SYRINGE IVP SCH ×2 (08:28→16:21)
[2017-10-15] MEDS ORDERED: PIPERACILLIN SODIUM/TAZOBACTAM 2.25 GM in DEXTROSE 5%-WATER 50 ML IV SCH (16:00)
[2017-10-15] MEDS: CALCIUM OYSTER SHELL 500 MG TABLET PO SCH (16:20)
[2017-10-15] MEDS: SENNA 187 MG TABLET PO SCH (20:37)
[2017-10-16 01:00] VITALS: BP 148/65
[2017-10-16 08:01] VITALS: BP 140/60
[2017-10-16] MEDS: FAMOTIDINE 20 MG TABLET PO SCH ×2 (08:14→20:03)
[2017-10-16] MEDS: BENAZEPRIL HCL 20 MG TABLET PO SCH (08:14)
[2017-10-16] MEDS: LACTOBAC ACID/BULG/BIFID/THERM TABLET PO SCH ×2 (08:14→20:03)
[2017-10-16] MEDS: ASPIRIN 81 MG CHEWABLE TABLET PO SCH (08:14)
[2017-10-16] MEDS: CHOLECALCIFEROL (VIT D3) 400 UNITS TABLET PO SCH (08:14)
[2017-10-16] MEDS: DICLOFENAC SODIUM 1% 100 GM GEL [4GM] TP SCH ×2 (08:14→20:03)
[2017-10-16] MEDS: FERROUS SULFATE 325 MG EC TABLET PO SCH ×2 (08:14→18:54)
[2017-10-16 16:02] VITALS: BP 146/61
[2017-10-16] MEDS: CALCIUM OYSTER SHELL 500 MG TABLET PO SCH (18:54)
[2017-10-16] MEDS: SENNA 187 MG TABLET PO SCH (20:03)
[2017-10-16] MEDS: DOCUSATE SODIUM 100 MG CAPSULE PO SCH (20:04)
[2017-10-17 01:07] VITALS: BP 151/61
[2017-10-17 07:05] VITALS: BP 150/73
[2017-10-17 07:25] LABS: BASOPHILS % (AUTO) 0.9 % (0.0-2.0); EOSINOPHILS % (AUTO) 3.2 % (1.0-6.0); HEMOGLOBIN 9.6 g/dL (12.0-16.0); LYMPHOCYTES % (AUTO) 27.8 % (22.0-44.0); MEAN CORPUSCULAR HEMOGLOBIN 23.1 pg (26.0-34.0); MEAN CORPUSCULAR HGB CONC 32.1 G/dL (31.0-37.0); MEAN CORPUSCULAR VOLUME 72 fL (80-100); MONOCYTES # (AUTO) 0.5 K/uL (0.1-1.0); MONOCYTES % (AUTO) 6.8 % (2.0-9.0); NEUTROPHILS # (AUTO) 4.5 K/uL (1.8-7.7); NEUTROPHILS % (AUTO) 61.3 % (40.0-70.0); PLATELET COUNT (AUTO) 487 K/uL (150-450); RED BLOOD CELL COUNT(AUTO) 4.17 MIL/uL (4.00-5.20); RED CELL DISTRIBUTION WIDTH 14.8 % (11.5-14.5)
[2017-10-17] MEDS: FERROUS SULFATE 325 MG EC TABLET PO SCH ×2 (07:54→19:06)
[2017-10-17] MEDS: BENAZEPRIL HCL 20 MG TABLET PO SCH (07:54)
[2017-10-17] MEDS: DICLOFENAC SODIUM 1% 100 GM GEL [4GM] TP SCH ×2 (07:54→20:49)
[2017-10-17] MEDS: FAMOTIDINE 20 MG TABLET PO SCH ×2 (07:54→20:49)
[2017-10-17] MEDS: CHOLECALCIFEROL (VIT D3) 400 UNITS TABLET PO SCH (07:54)
[2017-10-17] MEDS: LACTOBAC ACID/BULG/BIFID/THERM TABLET PO SCH (07:54)
[2017-10-17] MEDS: ASPIRIN 81 MG CHEWABLE TABLET PO SCH (07:54)
[2017-10-17] MEDS: AmLODIPine BESYLATE 5 MG TABLET PO SCH (12:31)
[2017-10-17 16:03] VITALS: BP 134/59
[2017-10-17] MEDS: CALCIUM OYSTER SHELL 500 MG TABLET PO SCH (19:06)
[2017-10-17] MEDS: SENNA 187 MG TABLET PO SCH (20:49)
[2017-10-18 01:34] VITALS: BP 141/63
[2017-10-18 04:47] LABS: APPEARANCE,URINE CLEAR (CLEAR); BILIRUBIN,URINE NEGATIVE (NEGATIVE); GLUCOSE, URINE (UA) NEGATIVE (NEGATIVE); KETONES,URINE NEGATIVE (NEGATIVE); LEUKOCYTE ESTERASE ,URINE TRACE (NEGATIVE); NITRATE,URINE NEGATIVE (NEGATIVE); OCCULT BLOOD,URINE SMALL (NEGATIVE); PH,URINE 5.5 (5.0-8.0); PROTEIN,URINE NEGATIVE (NEGATIVE); UROBILINOGEN,URINE 0.2 mg/dL (<=1.0)
[2017-10-18 04:48] LABS: BACTERIA,URINE Rare /HPF (None Seen)
[2017-10-18 04:49] LABS: SQUAMOUS EPITHELIAL CELL,UR Rare /LPF (None Seen)
[2017-10-18 08:00] VITALS: BP 141/64
[2017-10-18] MEDS: BENAZEPRIL HCL 20 MG TABLET PO SCH (08:20)
[2017-10-18] MEDS: DICLOFENAC SODIUM 1% 100 GM GEL [4GM] TP SCH ×2 (08:20→20:51)
[2017-10-18] MEDS: CHOLECALCIFEROL (VIT D3) 400 UNITS TABLET PO SCH (08:20)
[2017-10-18] MEDS: AmLODIPine BESYLATE 5 MG TABLET PO SCH (08:20)
[2017-10-18] MEDS: FAMOTIDINE 20 MG TABLET PO SCH ×2 (08:20→20:51)
[2017-10-18] MEDS: FERROUS SULFATE 325 MG EC TABLET PO SCH ×2 (08:20→17:57)
[2017-10-18] MEDS: ASPIRIN 81 MG CHEWABLE TABLET PO SCH (08:29)
[2017-10-18] MEDS: CALCIUM OYSTER SHELL 500 MG TABLET PO SCH (15:59)
[2017-10-18 16:00] VITALS: BP 99/45
[2017-10-18] MEDS: DOCUSATE SODIUM 100 MG CAPSULE PO SCH (20:51)
[2017-10-18] MEDS: SENNA 187 MG TABLET PO SCH (20:51)
[2017-10-19 00:31] VITALS: BP 138/52
[2017-10-19 08:08] VITALS: BP 143/69
[2017-10-19] MEDS: AmLODIPine BESYLATE 5 MG TABLET PO SCH (08:52)
[2017-10-19] MEDS: FERROUS SULFATE 325 MG EC TABLET PO SCH ×2 (08:52→16:35)
[2017-10-19] MEDS: DICLOFENAC SODIUM 1% 100 GM GEL [4GM] TP SCH ×2 (08:52→20:27)
[2017-10-19] MEDS: BENAZEPRIL HCL 20 MG TABLET PO SCH (08:53)
[2017-10-19] MEDS: ASPIRIN 81 MG CHEWABLE TABLET PO SCH (08:53)
[2017-10-19] MEDS: FAMOTIDINE 20 MG TABLET PO SCH ×2 (08:53→20:27)
[2017-10-19] MEDS: CHOLECALCIFEROL (VIT D3) 400 UNITS TABLET PO SCH (08:53)
[2017-10-19 15:41] VITALS: BP 105/50
[2017-10-19] MEDS: CALCIUM OYSTER SHELL 500 MG TABLET PO SCH (16:35)
[2017-10-19] MEDS: SENNA 187 MG TABLET PO SCH (20:27)
[2017-10-20 01:31] VITALS: BP 133/55
[2017-10-20] MEDS: FAMOTIDINE 20 MG TABLET PO SCH ×2 (08:15→20:54)
[2017-10-20] MEDS: AmLODIPine BESYLATE 5 MG TABLET PO SCH (08:15)
[2017-10-20] MEDS: MULTIVITAMINS WITH MINERALS, THERAPEUTIC TABLET PO SCH (08:15)
[2017-10-20] MEDS: FERROUS SULFATE 325 MG EC TABLET PO SCH ×2 (08:15→17:40)
[2017-10-20] MEDS: CHOLECALCIFEROL (VIT D3) 400 UNITS TABLET PO SCH (08:15)
[2017-10-20] MEDS: ASPIRIN 81 MG CHEWABLE TABLET PO SCH (08:16)
[2017-10-20] MEDS: DICLOFENAC SODIUM 1% 100 GM GEL [4GM] TP SCH ×2 (08:16→21:21)
[2017-10-20] MEDS: BENAZEPRIL HCL 20 MG TABLET PO SCH (08:18)
[2017-10-20 08:19] VITALS: BP 140/62
[2017-10-20] MEDS: CALCIUM OYSTER SHELL 500 MG TABLET PO SCH (15:34)
[2017-10-20 15:38] VITALS: BP 114/66
[2017-10-20 16:00] VITALS: BP 114/66
[2017-10-20] MEDS: SENNA 187 MG TABLET PO SCH (20:54)
[2017-10-20] MEDS: DOCUSATE SODIUM 100 MG CAPSULE PO SCH (20:54)
[2017-10-21 00:42] VITALS: BP 139/56
[2017-10-21] MEDS: AmLODIPine BESYLATE 5 MG TABLET PO SCH (08:23)
[2017-10-21] MEDS: CHOLECALCIFEROL (VIT D3) 400 UNITS TABLET PO SCH (08:23)
[2017-10-21] MEDS: FAMOTIDINE 20 MG TABLET PO SCH ×2 (08:23→20:09)
[2017-10-21] MEDS: ERGOCALCIFEROL (VIT D2) 50,000 UNITS CAPSULE PO SCH (08:23)
[2017-10-21] MEDS: FERROUS SULFATE 325 MG EC TABLET PO SCH ×2 (08:23→17:40)
[2017-10-21] MEDS: MULTIVITAMINS WITH MINERALS, THERAPEUTIC TABLET PO SCH (08:23)
[2017-10-21] MEDS: ASPIRIN 81 MG CHEWABLE TABLET PO SCH (08:23)
[2017-10-21] MEDS: BENAZEPRIL HCL 20 MG TABLET PO SCH (08:23)
[2017-10-21] MEDS: DICLOFENAC SODIUM 1% 100 GM GEL [4GM] TP SCH ×2 (08:24→20:10)
[2017-10-21] MEDS: NYSTATIN 15 GM POWDER BOTTLE TP SCH (08:24)
[2017-10-21 08:25] VITALS: BP 141/68
[2017-10-21] MEDS: CALCIUM OYSTER SHELL 500 MG TABLET PO SCH (15:50)
[2017-10-21 16:00] VITALS: BP_SYST 121; BP_SYST 99; BP_DIAS 43; BP_DIAS 53
[2017-10-21] MEDS: SENNA 187 MG TABLET PO SCH (20:09)
[2017-10-22 00:09] VITALS: BP 125/51
[2017-10-22 08:00] VITALS: BP 116/48
[2017-10-22] MEDS: ASPIRIN 81 MG CHEWABLE TABLET PO SCH (08:49)
[2017-10-22] MEDS: AmLODIPine BESYLATE 5 MG TABLET PO SCH (08:49)
[2017-10-22] MEDS: BENAZEPRIL HCL 20 MG TABLET PO SCH (08:49)
[2017-10-22] MEDS: FERROUS SULFATE 325 MG EC TABLET PO SCH ×2 (08:49→17:32)
[2017-10-22] MEDS: FAMOTIDINE 20 MG TABLET PO SCH ×2 (08:49→20:05)
[2017-10-22] MEDS: CHOLECALCIFEROL (VIT D3) 400 UNITS TABLET PO SCH (08:49)
[2017-10-22] MEDS: MULTIVITAMINS WITH MINERALS, THERAPEUTIC TABLET PO SCH (08:49)
[2017-10-22] MEDS: DICLOFENAC SODIUM 1% 100 GM GEL [4GM] TP SCH ×2 (08:49→20:06)
[2017-10-22] MEDS: NYSTATIN 15 GM POWDER BOTTLE TP SCH (08:50)
[2017-10-22 15:23] VITALS: BP 120/55
[2017-10-22] MEDS: CALCIUM OYSTER SHELL 500 MG TABLET PO SCH (15:32)
[2017-10-22] MEDS: SENNA 187 MG TABLET PO SCH (20:05)
[2017-10-22] MEDS: DOCUSATE SODIUM 100 MG CAPSULE PO SCH (20:06)
[2017-10-23 00:17] VITALS: BP 115/50
[2017-10-23] MEDS ORDERED: VITAD400 PO (02:42)
[2017-10-23] MEDS ORDERED: OS500 PO (02:46)
[2017-10-23] MEDS ORDERED: NYST30CR9 TP (02:53)
[2017-10-23] MEDS ORDERED: DICL4100G TP (02:53)
[2017-10-23] MEDS ORDERED: FERR-89 PO (02:53)
[2017-10-23] MEDS ORDERED: DSS100 PO (02:53)
[2017-10-23] MEDS ORDERED: FAMO20 PO (02:53)
[2017-10-23] MEDS ORDERED: AMLO-511 PO (02:53)
[2017-10-23] MEDS ORDERED: MULT-1239 PO (02:53)
[2017-10-23 08:12] VITALS: BP 125/53
[2017-10-23] MEDS: BENAZEPRIL HCL 20 MG TABLET PO SCH (08:26)
[2017-10-23] MEDS: CHOLECALCIFEROL (VIT D3) 400 UNITS TABLET PO SCH (08:26)
[2017-10-23] MEDS: FERROUS SULFATE 325 MG EC TABLET PO SCH ×2 (08:26→16:25)
[2017-10-23] MEDS: AmLODIPine BESYLATE 5 MG TABLET PO SCH (08:27)
[2017-10-23] MEDS: DICLOFENAC SODIUM 1% 100 GM GEL [4GM] TP SCH ×3 (08:27→20:46)
[2017-10-23] MEDS: ASPIRIN 81 MG CHEWABLE TABLET PO SCH (08:27)
[2017-10-23] MEDS: FAMOTIDINE 20 MG TABLET PO SCH ×2 (08:27→20:42)
[2017-10-23] MEDS: NYSTATIN 15 GM POWDER BOTTLE TP SCH (08:27)
[2017-10-23] MEDS: MULTIVITAMINS WITH MINERALS, THERAPEUTIC TABLET PO SCH (08:27)
[2017-10-23] MEDS: CALCIUM OYSTER SHELL 500 MG TABLET PO SCH (16:25)
[2017-10-23 16:27] VITALS: BP 108/50
[2017-10-23] MEDS: SENNA 187 MG TABLET PO SCH (20:42)
[2017-10-24] VITALS: BP 133/61
[2017-10-24 08:01] VITALS: BP 121/55
[2017-10-24] MEDS: CHOLECALCIFEROL (VIT D3) 400 UNITS TABLET PO SCH (08:28)
[2017-10-24] MEDS: DICLOFENAC SODIUM 1% 100 GM GEL [4GM] TP SCH (08:29)
[2017-10-24] MEDS: BENAZEPRIL HCL 20 MG TABLET PO SCH (08:29)
[2017-10-24] MEDS: MULTIVITAMINS WITH MINERALS, THERAPEUTIC TABLET PO SCH (08:29)
[2017-10-24] MEDS: FERROUS SULFATE 325 MG EC TABLET PO SCH (08:29)
[2017-10-24] MEDS: FAMOTIDINE 20 MG TABLET PO SCH (08:29)
[2017-10-24] MEDS: AmLODIPine BESYLATE 5 MG TABLET PO SCH (08:29)
[2017-10-24] MEDS: ASPIRIN 81 MG CHEWABLE TABLET PO SCH (08:29)
[2017-10-24] MEDS: NYSTATIN 15 GM POWDER BOTTLE TP SCH (08:30)
[2017-10-24 14:45] VITALS: BP 133/57
== END 2017-10-24 15:00 | disposition home health service (06) | DRG 551 ==
LOC: 2WR 13:24
PROVIDERS: ADMIT Physical Medicine & Rehabilitation; ATTEND Physical Medicine & Rehabilitation
DX: M43.17 Spondylolisthesis, lumbosacral region (principal); E43 Unspecified severe protein-calorie malnutrition; M48.061 Spinal stenosis, lumbar region without neurogenic claudication; M72.9 Fibroblastic disorder, unspecified; R53.81 Other malaise; I10 Essential (primary) hypertension; D50.9 Iron deficiency anemia, unspecified; D63.8 Anemia in other chronic diseases classified elsewhere; E78.00 Pure hypercholesterolemia, unspecified; E78.5 Hyperlipidemia, unspecified; M41.86 Other forms of scoliosis, lumbar region; M60.9 Myositis, unspecified; E55.9 Vitamin D deficiency, unspecified; M25.451 Effusion, right hip; M54.5 Low back pain; R26.2 Difficulty in walking, not elsewhere classified; R74.0 Nonspecific elevation of levels of transaminase and lactic acid dehydrogenase [LDH]; Z68.26 Body mass index [BMI] 26.0-26.9, adult
CPT/HCPCS: 70450; 72197; 76700; 87081; 87086; 87106; 93970; 97110; 97112; 97116; 97150; 97163; 97166; 97530; 97535; 99366; A9585; J1644; J2543; J3370; J7050; J7060

== ENCOUNTER → 2017-11-08 | Outpatient (CLI) | payer MEDICARE, OTHER ==
[~2017-11-08] MED LIST changes: -ACET-2247 PO; +AMLO-511 PO; -CALC-1038 PO; +DICL4100G TP; +DSS100 PO; -ERGO400T7 PO; +FAMO20 PO; +FERR-89 PO; -MECL-111 PO; +MULT-1239 PO; -NAPR-58 PO; +NYST30CR9 TP; +OS500 PO
== END | disposition home or self-care (01) ==
LOC: RADMN 12:52
PROVIDERS: ATTEND Internal Medicine
DX: I67.2 Cerebral atherosclerosis (principal); M19.012 Primary osteoarthritis, left shoulder; R07.89 Other chest pain; Z91.81 History of falling
CPT/HCPCS: 70450; 71101

== ENCOUNTER → 2018-06-19 | Outpatient (CLI) | payer MEDICARE, OTHER ==
[2018-06-19 12:20] LABS: APPEARANCE,URINE CLOUDY (CLEAR); BILIRUBIN,URINE NEGATIVE (NEGATIVE); GLUCOSE, URINE (UA) NEGATIVE (NEGATIVE); KETONES,URINE NEGATIVE (NEGATIVE); LEUKOCYTE ESTERASE ,URINE MODERATE (NEGATIVE); NITRATE,URINE POSITIVE (NEGATIVE); OCCULT BLOOD,URINE SMALL (NEGATIVE); PROTEIN,URINE NEGATIVE (NEGATIVE); UROBILINOGEN,URINE 0.2 mg/dL (<=1.0)
[2018-06-19 12:54] LABS: RBC,URINE 0-2 /HPF (0-2); WBC,URINE 26-50 /HPF (0-5)
[2018-06-19 12:55] LABS: BACTERIA,URINE Many /HPF (None Seen); SQUAMOUS EPITHELIAL CELL,UR Few /LPF (None Seen)
== END | disposition home or self-care (01) ==
LOC: MSR 10:57
PROVIDERS: ATTEND Internal Medicine
DX: M16.0 Bilateral primary osteoarthritis of hip (principal); M77.8 Other enthesopathies, not elsewhere classified
CPT/HCPCS: 73521; 87086

== ENCOUNTER → 2019-02-12 | Outpatient (CLI) | payer MEDICARE, OTHER ==
[~2019-02-12] MED LIST changes: -AMLO-511 PO; +AMLO5TAB9 PO; -BENA20 PO; +BENA20TA11 PO
== END | disposition home or self-care (01) ==
LOC: RADPV 15:08
PROVIDERS: ATTEND Internal Medicine
DX: M16.0 Bilateral primary osteoarthritis of hip (principal); M41.86 Other forms of scoliosis, lumbar region; I70.0 Atherosclerosis of aorta
CPT/HCPCS: 72110; 73521

== ENCOUNTER → 2019-05-02 | Outpatient (CLI) | payer MEDICARE, OTHER ==
[2019-05-02 11:19] LABS: BASOPHILS % (AUTO) 0.4 % (0.0-2.0); EOSINOPHILS % (AUTO) 1.3 % (1.0-6.0); HEMATOCRIT 31.1 % (36-46); HEMOGLOBIN 9.8 g/dL (12.0-16.0); LYMPHOCYTES # (AUTO) 1.8 K/uL (1.0-4.8); LYMPHOCYTES % (AUTO) 43.4 % (22.0-44.0); MEAN CORPUSCULAR HEMOGLOBIN 23.1 pg (26.0-34.0); MEAN CORPUSCULAR HGB CONC 31.5 G/dL (31.0-37.0); MEAN CORPUSCULAR VOLUME 73 fL (80-100); MONOCYTES # (AUTO) 0.3 K/uL (0.1-1.0); MONOCYTES % (AUTO) 6.6 % (2.0-9.0); NEUTROPHILS % (AUTO) 48.3 % (40.0-70.0); PLATELET COUNT (AUTO) 196 K/uL (150-450); RED BLOOD CELL COUNT(AUTO) 4.25 MIL/uL (4.00-5.20); RED CELL DISTRIBUTION WIDTH 14.7 % (11.5-14.5)
[2019-05-02 11:33] LABS: HEMOGLOBIN A1C 5.6 % (4.5-6.2)
[2019-05-02 12:02] LABS: ALBUMIN 4.1 g/dL (3.4-5.0); BILIRUBIN,TOTAL 0.4 mg/dL (0.1-1.0); CALCIUM, TOTAL 8.6 mg/dL (8.8-10.5); CHOL/HDL RATIO 1.8 (3.9-5.7); CREATININE 1.04 mg/dL (0.60-1.30); POTASSIUM 4.2 mmol/L (3.5-5.1); THYROID STIMULATING HORMONE 1.57 uIU/mL (0.36-3.74); TOTAL PROTEIN, SERUM 7.5 g/dL (6.4-8.2)
== END | disposition home or self-care (01) ==
LOC: LABPV 09:49
PROVIDERS: ATTEND Internal Medicine
DX: M81.0 Age-related osteoporosis without current pathological fracture (principal); E55.9 Vitamin D deficiency, unspecified; I10 Essential (primary) hypertension; E78.2 Mixed hyperlipidemia; R63.4 Abnormal weight loss; Z79.899 Other long term (current) drug therapy
CPT/HCPCS: 77080; 82652; 83036; 84443

== ENCOUNTER → 2019-05-06 | Outpatient (CLI) | payer MEDICARE, OTHER ==
[2019-05-06 12:44] LABS: IRON, SERUM 84 mcg/dL (50-175)
[2019-05-06 12:57] LABS: FERRITIN 120 ng/mL (8-252)
== END | disposition home or self-care (01) ==
LOC: LABPV 10:23
PROVIDERS: ATTEND Internal Medicine
DX: D64.9 Anemia, unspecified (principal); I10 Essential (primary) hypertension; M19.90 Unspecified osteoarthritis, unspecified site
CPT/HCPCS: 82728; 83540

== ENCOUNTER → 2019-05-08 | Outpatient (CLI) | payer MEDICARE, OTHER ==
[~2019-05-08] MED LIST changes: +IOVERSOL 320 MG/ML 100 ML VIAL ONE; +SODIUM CHLORIDE 0.9% 100 ML ONE
== END | disposition home or self-care (01) ==
LOC: RADMN 09:50
PROVIDERS: ATTEND Internal Medicine
DX: K42.9 Umbilical hernia without obstruction or gangrene (principal); D64.9 Anemia, unspecified; R63.4 Abnormal weight loss; J47.9 Bronchiectasis, uncomplicated; J98.11 Atelectasis; R60.9 Edema, unspecified; K80.20 Calculus of gallbladder without cholecystitis without obstruction; I70.0 Atherosclerosis of aorta
CPT/HCPCS: 71260; 72193; 74160; J7050; Q9967

== ENCOUNTER → 2019-05-12 | Outpatient (CLI) | payer MEDICARE, OTHER ==
[~2019-05-12] MED LIST changes: -IOVERSOL 320 MG/ML 100 ML VIAL ONE; -SODIUM CHLORIDE 0.9% 100 ML ONE
[2019-05-12 17:45] LABS: BILIRUBIN,TOTAL 0.5 mg/dL (0.1-1.0); CALCIUM, TOTAL 8.6 mg/dL (8.8-10.5); CREATININE 1.03 mg/dL (0.60-1.30); POTASSIUM 4.8 mmol/L (3.5-5.1); TOTAL PROTEIN, SERUM 7.5 g/dL (6.4-8.2)
== END | disposition home or self-care (01) ==
LOC: LABPV 09:39
PROVIDERS: ATTEND Internal Medicine
DX: R79.89 Other specified abnormal findings of blood chemistry (principal)

== ENCOUNTER → 2019-09-17 | Outpatient (CLI) | payer MEDICARE, OTHER | END | disposition home or self-care (01) | LOC: RADPV 09:00 | PROVIDERS: ATTEND Internal Medicine | DX: K80.20 Calculus of gallbladder without cholecystitis without obstruction (principal); R79.89 Other specified abnormal findings of blood chemistry | CPT/HCPCS: 76700 ==

== ENCOUNTER → 2021-04-20 | Outpatient (CLI) | payer MEDICARE, OTHER ==
[~2021-04-20] MED LIST changes: +AMLO-257 PO; -AMLO5TAB9 PO; -BENA20TA11 PO; +BENA20TA83 PO
[2021-04-20 12:09] LABS: BASOPHILS % (AUTO) 0.3 % (0.0-2.0); EOSINOPHILS % (AUTO) 1.2 % (1.0-6.0); HEMATOCRIT 37.1 % (36-46); HEMOGLOBIN 11.5 g/dL (12.0-16.0); LYMPHOCYTES # (AUTO) 1.6 K/uL (1.0-4.8); LYMPHOCYTES % (AUTO) 38.7 % (22.0-44.0); MEAN CORPUSCULAR HEMOGLOBIN 23.7 pg (26.0-34.0); MEAN CORPUSCULAR HGB CONC 30.9 G/dL (31.0-37.0); MEAN CORPUSCULAR VOLUME 77 fL (80-100); MONOCYTES # (AUTO) 0.2 K/uL (0.1-1.0); MONOCYTES % (AUTO) 5.3 % (2.0-9.0); NEUTROPHILS # (AUTO) 2.3 K/uL (1.8-7.7); NEUTROPHILS % (AUTO) 54.5 % (40.0-70.0); PLATELET COUNT (AUTO) 151 K/uL (150-450); RED BLOOD CELL COUNT(AUTO) 4.83 MIL/uL (4.00-5.20); RED CELL DISTRIBUTION WIDTH 14.9 % (11.5-14.5)
[2021-04-20 12:28] LABS: ALBUMIN 3.9 g/dL (3.4-5.0); BILIRUBIN,TOTAL 0.3 mg/dL (0.1-1.0); CALCIUM, TOTAL 8.7 mg/dL (8.8-10.5); CHOL/HDL RATIO 2.5 (3.9-5.7); CREATININE 1.21 mg/dL (0.60-1.30); POTASSIUM 4.3 mmol/L (3.5-5.1); TOTAL PROTEIN, SERUM 7.6 g/dL (6.4-8.2)
[2021-04-20 12:30] LABS: FOLATE SERUM 9.3 ng/mL (5.4-)
== END | disposition home or self-care (01) ==
LOC: LABPV 10:54
PROVIDERS: ATTEND Internal Medicine
DX: E78.2 Mixed hyperlipidemia (principal); D64.9 Anemia, unspecified; E55.9 Vitamin D deficiency, unspecified; Z79.899 Other long term (current) drug therapy
CPT/HCPCS: 80053; 80061; 82306; 82607; 82746; 84443; 85025

== ENCOUNTER 2023-01-27 16:32 | Emergency (ER) | payer MEDICARE, OTHER ==
[~2023-01-27] VITALS: Ht 149.9 cm; Wt 54.5 kg
[~2023-01-27 16:32] MED LIST changes: +BENA-18 PO; -BENA20TA83 PO; -FERR-89 PO; +FERR325T27 PO
[2023-01-27 17:53] VITALS: TEMP 98.5
[2023-01-27 19:06] LABS: BASOPHILS % (AUTO) 0.7 % (0.0-2.0); EOSINOPHILS % (AUTO) 1.6 % (1.0-6.0); HEMATOCRIT 37.7 % (36-46); HEMOGLOBIN 11.7 g/dL (12.0-16.0); LYMPHOCYTES % (AUTO) 61.2 % (22.0-44.0); MEAN CORPUSCULAR HEMOGLOBIN 23.3 pg (26.0-34.0); MEAN CORPUSCULAR HGB CONC 30.9 G/dL (31.0-37.0); MEAN CORPUSCULAR VOLUME 76 fL (80-100); MONOCYTES # (AUTO) 0.2 K/uL (0.1-1.0); MONOCYTES % (AUTO) 6.3 % (2.0-9.0); NEUTROPHILS % (AUTO) 30.2 % (40.0-70.0); PLATELET COUNT (AUTO) 156 K/uL (150-450); RED CELL DISTRIBUTION WIDTH 16.1 % (11.5-14.5); WHITE BLOOD COUNT (AUTO) 3.2 K/uL (4.5-11.0)
[2023-01-27 19:10] LABS: CALCIUM, TOTAL 8.8 mg/dL (8.8-10.5); CREATININE 1.04 mg/dL (0.60-1.30); POTASSIUM 4.5 mmol/L (3.5-5.1)
[2023-01-27 19:13] LABS: ALBUMIN 3.8 g/dL (3.4-5.0); BILIRUBIN,TOTAL 0.5 mg/dL (0.1-1.0); TOTAL PROTEIN, SERUM 7.2 g/dL (6.4-8.2)
[2023-01-27 19:15] LABS: TROPONIN I-HIGH SENSITIVITY 10 ng/L (<51)
[2023-01-27] MEDS ORDERED: SODIUM CHLORIDE 0.9% 1,000 ML IV ONE (19:15)
[2023-01-27 19:43] LABS: PROTHROMBIN TIME 10.3 SEC (9.4-11.6)
[2023-01-27 20:55] LABS: APPEARANCE,URINE HAZY (CLEAR); BILIRUBIN,URINE NEGATIVE (NEGATIVE); COLOR,URINE LIGHT YELLOW (YELLOW); GLUCOSE, URINE (UA) NEGATIVE (NEGATIVE); KETONES,URINE NEGATIVE (NEGATIVE); LEUKOCYTE ESTERASE ,URINE LARGE (NEGATIVE); NITRATE,URINE NEGATIVE (NEGATIVE); OCCULT BLOOD,URINE NEGATIVE (NEGATIVE); PH,URINE 7.5 (5.0-8.0); PROTEIN,URINE 30-70 mg/dL (NEGATIVE); SPECIFIC GRAVITIY, URINE 1.017 (1.003-1.030); UROBILINOGEN,URINE <=1.0 mg/dL (<=1.0)
[2023-01-27 21:12] LABS: SQUAMOUS EPITHELIAL CELL,UR Few /LPF (None Seen)
[2023-01-27 21:13] LABS: BACTERIA,URINE Few /HPF (None Seen); RBC,URINE None Seen /HPF (0-2); WBC,URINE 26-50 /HPF (0-5)
[2023-01-27] MEDS ORDERED: CEPH-558 PO (21:14)
[2023-01-27] MEDS ORDERED: CEPHALEXIN MONOHYDRATE 500 MG CAPSULE PO ONE (21:15)
[2023-01-27 23:28] VITALS: BP 165/64; PULSE 60; RESP 16
== END 2023-01-27 23:29 | disposition home or self-care (01) ==
LOC: EMS 16:32
DX: E86.0 Dehydration (principal); N39.0 Urinary tract infection, site not specified; E78.00 Pure hypercholesterolemia, unspecified; I10 Essential (primary) hypertension
CPT/HCPCS: 99285; 96360; 70450; 71045; 80053; 81001; 82550; 83880; 84484; 85025; 85610; 85730; 36415; 87086; 87186; 93005; J7030; 81003

== ENCOUNTER 2024-04-30 15:37 | Emergency (ER) | payer MEDICARE, OTHER ==
[~2024-04-30] VITALS: Ht 152.4 cm; Wt 45.5 kg
[~2024-04-30 15:37] MED LIST changes: +ASPI81TA87 PO; +CEPH-558 PO; +DOCU100C33 PO; +LEVO-72 PO; +LEVO2.5S4 PO; +MAGN300C PO; +PRIM50TA23 PO; +ROPI1TAB46 PO
[2024-04-30 15:41] VITALS: TEMP 97.8
[2024-04-30] MEDS ORDERED: PRIM50TA3 PO (15:43)
[2024-04-30] MEDS ORDERED: PIMA34CA PO (15:43)
[2024-04-30] MEDS ORDERED: NITR0.4T50 SL (15:43)
[2024-04-30 16:40] LABS: APPEARANCE,URINE HAZY (CLEAR); BILIRUBIN,URINE NEGATIVE (NEGATIVE); COLOR,URINE YELLOW (YELLOW); GLUCOSE, URINE (UA) NEGATIVE (NEGATIVE); KETONES,URINE NEGATIVE (NEGATIVE); LEUKOCYTE ESTERASE ,URINE MODERATE (NEGATIVE); NITRATE,URINE POSITIVE (NEGATIVE); OCCULT BLOOD,URINE TRACE (NEGATIVE); PH,URINE 5.5 (5.0-8.0); PROTEIN,URINE TRACE mg/dL (NEGATIVE); SPECIFIC GRAVITIY, URINE 1.028 (1.003-1.030); UROBILINOGEN,URINE <=1.0 mg/dL (<=1.0)
[2024-04-30 16:56] LABS: BACTERIA,URINE Many /HPF (None Seen); SQUAMOUS EPITHELIAL CELL,UR Few /LPF (None Seen)
[2024-04-30 17:13] LABS: BASOPHILS % (AUTO) 0.4 % (0.0-2.0); HEMATOCRIT 37.6 % (36-46); HEMOGLOBIN 11.3 g/dL (12.0-16.0); LYMPHOCYTES # (AUTO) 2.1 K/uL (1.0-4.8); MEAN CORPUSCULAR HEMOGLOBIN 22.9 pg (26.0-34.0); MEAN CORPUSCULAR VOLUME 76 fL (80-100); MONOCYTES # (AUTO) 0.3 K/uL (0.1-1.0); MONOCYTES % (AUTO) 7.5 % (2.0-9.0); NEUTROPHILS # (AUTO) 1.6 K/uL (1.8-7.7); NEUTROPHILS % (AUTO) 39.1 % (40.0-70.0); PLATELET COUNT (AUTO) 153 K/uL (150-450); RED BLOOD CELL COUNT(AUTO) 4.94 MIL/uL (4.00-5.20); RED CELL DISTRIBUTION WIDTH 16.1 % (11.5-14.5)
[2024-04-30 17:23] LABS: CALCIUM, TOTAL 8.7 mg/dL (8.8-10.5); CREATININE 1.29 mg/dL (0.60-1.30); POTASSIUM 4.8 mmol/L (3.5-5.1)
[2024-04-30 17:38] LABS: PLATELET MORPHOLOGY COMMENT LARGE PLTS PRESENT; RBC MORPHOLOGY COMMENT ABNORMAL RBC MORPH
[2024-04-30] MEDS: CefTRIAXone 1 GM/DEXTROSE 50 ML IV ONE (17:44)
[2024-04-30] MEDS: AmLODIPine BESYLATE 5 MG TABLET PO ONE (18:20)
[2024-04-30] MEDS ORDERED: CEPH-558 PO (18:36)
[2024-04-30 18:39] VITALS: BP 176/74; PULSE 60; RESP 16; O2SAT 98
== END 2024-04-30 18:54 | disposition home or self-care (01) ==
LOC: EMS 15:37
DX: N39.0 Urinary tract infection, site not specified (principal); I10 Essential (primary) hypertension; G20.A1 Parkinson's disease without dyskinesia, without mention of fluctuations; Z79.1 Long term (current) use of non-steroidal anti-inflammatories (NSAID); Z79.82 Long term (current) use of aspirin
CPT/HCPCS: 99284; 96365; 80048; 81001; 85025; 87077; 87086; 87186; 36415; J0696